=== PATIENT | female | born 1990 | race Hispanic/Latino ===

== ENCOUNTER 2016-07-09 05:57 | Inpatient (IN) | payer MEDICAID ==
[~2016-07-09] VITALS: Ht 149.9 cm; Wt 70.3 kg
[~2016-07-09 05:57] MED LIST: Docusate Sodium PO; Ibuprofen PO
[2016-07-09] MEDS ORDERED: Hemorrhage Kit, Post Partum XX ONE ×2 (06:30→22:55)
[2016-07-09] MEDS ORDERED: Oxytocin 10 Unit/mL Inj IM PRN ×2 (06:30→22:55)
[2016-07-09] MEDS ORDERED: Sodium Chloride LOK Flush 10 mL Syringe IVFLUSH PRN (06:30)
[2016-07-09] MEDS ORDERED: Methylergonovine 0.2 mg/mL Inj IM PRN ×2 (06:30→22:55)
[2016-07-09] MEDS ORDERED: Oxytocin 30 Units/500 mL LR 30 UNITS in IV Premix 1 EACH IV PRN (06:30)
[2016-07-09] MEDS ORDERED: Carboprost 250 mCg/mL Inj IM PRN ×2 (06:30→22:55)
--- NOTE | 2016-07-09 07:09 | PCM.HPOB ---
Subjective Date of Service: Jul 09, 2016 Referring Provider: Admitting Physician: Brayan Viera MD Primary Care Physician: Nopcp Attending Physician: Brayan Viera MD Chief Complaint Induction for twin gestation History of Present History of Present Illness Patient is a 26-year-old female [id number] at 37 weeks of gestational age who is admitted to L&D for induction of twin . He has been complicated by cholestasis and possible IUGR EFW 9% in twin A on 04/05/16 . Twin B appears to have normal growth. Patient's previous has been complicated by oligo, PCN allergy (hives and SOB as infant). Past Medical History Social History: Patient lives in [place] with her and three children, 10, 7 and 2 years old. 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 Hx Tobacco Use: No Hx Alcohol Use: No Hx Substance Use: No Past Family History Living Arrangement: with Family Allergy Coded Allergies: Penicillins (Verified Allergy, Severe, Rash, 12/15/13) Exam Vital Signs Vital signs are stable. Exam FHR at 130 's at baseline, with moderate variability, accelerations present, no decelerations, UC 3-9 minutes. Objective At the time of exam, patient's cervix is 3 cm, 60%, -3. Constitutional: Well-developed, Well-nourished HEENT: Atraumatic, Scleral Anicteric Lungs: Clear to Auscultation, Normal Air Movement Heart: Exam Unremarkable, Regular Rate/Rhythm Abdomen: Gravid Extremities: Pulses Palpable x4 Neurological/Psychiatric: Alert, Oriented X3, Cooperative, No Acute Distress Neuro: Grossly Neurologically Intact Labs/Diagnostics Labs Blood type O+, antibody screen negative, HCT/HGB/MCV 36%/12.3 g/dl/91, Pap test negative on 02/07/16, varicella/rubella immune, RPR non-reactive, HIV screen negative, GBS negative, diabetes screen 102. Ultra Sound UA-abnormal (8-20 weeks) UA-normal (32-26 weeks) Maternal Blood Type: O Hx Rho(D) Immune Globulin: No Group B Strep Results: Negative Rubella: Immune OB Intrapartum Assessment/Plan Assessment Patient is a 26-year-old female [id number] at 37 weeks of gestational age who is admitted to L&D for induction of twin with heart rate tracing reassuring. 1. Admit to L&D 2. Trial of induction for -Cervical ripening balloon inserted at 8 am 3. Continue to monitor closely 4. Patient does not desire epidural for pain relief Naty Baig DO Jul 09, 2016 07:09
[2016-07-09] MEDS ORDERED: HYDR50TA76 PO (07:26)
[2016-07-09] MEDS ORDERED: URSO300C2 PO (07:26)
[2016-07-09] MEDS ORDERED: PNV1TABL9 PO (07:29)
[2016-07-09 09:30] LABS: Mean Corpuscular Volume 91.9 fL (81-100)
[2016-07-09] MEDS ORDERED: hydrOXYzine Pamoate 25 mg Capsule PO PRN (10:30)
[2016-07-09] MEDS: Lactated Ringer's 1,000 ML IV PRN ×2 (16:02→21:44)
[2016-07-09] MEDS ORDERED: Lactated Ringer's 1,000 ML IV SCH (22:51)
[2016-07-09] MEDS ORDERED: LANOlin HPA 7 Gm Ointment TOPICAL PRN (22:55)
[2016-07-09] MEDS ORDERED: Benzocaine (Dermoplast) 20% 60 Gm Spray TOPICAL PRN (22:55)
[2016-07-09] MEDS ORDERED: Witch Hazel-Glycerin Pads TOPICAL PRN (22:55)
[2016-07-09] MEDS: oxyCODONE-Acetamin 5-325 mg Tablet PO PRN (23:09)
[2016-07-10 07:18] LABS: Mean Corpuscular Hemoglobin 31.9 pg (27.0-35.0); Mean Corpuscular Volume 91.2 fL (81-100)
[2016-07-10] MEDS ORDERED: Ascorbic Acid 500 mg Tablet PO SCH (08:00)
[2016-07-10] MEDS: oxyCODONE-Acetamin 5-325 mg Tablet PO PRN (08:08)
--- NOTE | 2016-07-10 10:42 | OP ---
[address] [address] OPERATIVE REPORT PATIENT: JEET HOOD : 1990 MR#: [id number] ADMIT: 07/09/2016 JOB ID: [id number] DATE OF SURGERY: 07/09/2016 SURGEON: Brayan Viera MD. PREOPERATIVE DIAGNOSIS(ES): 1. A 26-year-old, 4, para 3, at 37 weeks with diamniotic dichorionic twin gestation. 2. Cholestasis of . POSTOPERATIVE DIAGNOSIS(ES): 1. A 26-year-old, 4, para 5, status post spontaneous vaginal delivery of twins at term. 2. Cholestasis of . DELIVERY SUMMARY: The patient is a 26-year-old, 4, para 5 now, who came to labor and delivery on July 09, 2016, for induction of labor at 37 weeks due to cholestasis. The patient had diamniotic dichorionic twin gestation. The presentation of twins was confirmed to be cephalic for both twins. Decision was made to proceed with spontaneous vaginal delivery. The patient had a cervical ripening balloon placed at 8 o'clock in the morning on July 09, 2016, when she was examined and found to be 3 cm dilated, 60% effaced, -3 station. The balloon came out at around 5 o'clock p.m. The patient declined an epidural. She was sadie every 4-5 minutes after the balloon came out. heart rate tracing was reactive for both twins. At 9:30 p.m. the patient was brought to the operating room, where a double setup table was arranged. She had artificial rupture of membranes for twin A. The amniotic fluid was clear. Augmentation with Pitocin was started, so the contractions became more adequate. The patient started pushing and at 10:06 p.m. she underwent delivery of the first twin girl, with Apgars 8 at one minute and 9 at five minutes, weight 2432 g. Delayed cord clamping was provided. Following that, the twin girl was transferred to the awaiting solvent recoverer. Cord blood gas was sent. The presentation of the second twin was confirmed to be cephalic. Amniotic membranes were ruptured. The head became gradually engaged and patient started pushing. She underwent spontaneous vaginal delivery of twin B 10 minutes later. At 10:17 p.m., delivered twin girl with Apgars 7 at one minute and 9 at five minutes, weight 2166 g. Delayed cord clamping was provided. After 1 minute, the cord was clamped and cut, and the was handed off to the awaiting solvent recoverer. Cord blood for blood gases was sent. The patient has not had any perineal lacerations. Both placentas were delivered at 10:21 p.m., were found to be intact and were sent to Pathology. Pitocin was started, and uterine massage was provided. The patient still had some excessive bleeding that was controlled with intravascular injection of 0.2 mg of Methergine and 250 mcg of Hemabate. Following that, the bleeding subsided. Total estimated blood loss was 350 mL. It was an uncomplicated spontaneous vaginal delivery of twins.
--- NOTE | 2016-07-10 11:55 | PCM.PNOBPP ---
Subjective Date of Service Jul 10, 2016 Post : Spontaneous Vaginal Delivery Lochia: Normal Pain Management: PO pain meds Gastrointestinal: Good Appetite, No N/V Postop Activity: Ambulate without Assist Group B Strep Results: Negative Rubella: Immune Blood Type: O Labs Laboratory Tests 07/10/16 06:43: White Blood Count 10.2, Red Blood Count 4.11, Hemoglobin 13.1, Hematocrit 37.5, Mean Corpuscular Volume 91.2, Mean Corpuscular Hemoglobin 31.9, Mean Corpuscular Hemoglobin Concent 34.9, Red Cell Distribution Width 13.6, Platelet Count 108 Exam Vital Signs Vital Signs 112/66 62 16 36.6 Vital Signs: VS reviewed, stable Exam Abdomen: Fundus firm Lungs: Clear to Auscultation, Clear to Percussion Heart: Regular Rate/Rhythm, Normal S1 General: Alert, Oriented X3 OB Post Assessment/Plan Assessment Patient is a 26-year-old female PPD#1 Twins vaginal delivery (07/09/16 at 2207, 2217) at 37 weeks of gestational after induction for cholestasis and possible IUGR twin A. patient feels she is not ready for discharge secondary to uterine cramping and feeling dizzy with ambulation. VS labs and PE wnl. Anticipate discharge tomorrow. Patient's previous has been complicated by: 1. Oligo 2. PCN allergy (hives and SOB as infant). Post plan: Discharge home tomorrow Shawn Butler MD Jul 10, 2016 11:46
[2016-07-10] MEDS ORDERED: diphenhydrAMINE 50 mg Capsule PO PRN (12:30)
[2016-07-10] MEDS ORDERED: diphenhydrAMINE 25 mg Capsule PO PRN (12:34)
[2016-07-10] MEDS ORDERED: DOCU-41 PO (16:35)
[2016-07-10] MEDS ORDERED: HYDR30CR76 RC (16:35)
[2016-07-10] MEDS ORDERED: IBUP-1827 PO (16:37)
[2016-07-10] MEDS ORDERED: OXYC1TAB24 PO (16:37)
[2016-07-10] MEDS ORDERED: DIPH25CA6 PO (16:37)
--- NOTE | 2016-07-10 17:06 | PCM.DC.OB ---
Obstetrical Discharge Summary Date of Service Jul 10, 2016 Date of hospital admission Jul 09, 2016 at 05:57 Date of Discharge: Jul 10, 2016 Providers Admitting Physician: Brayan Viera MD Primary Care Physician: Noppankaj Attending Physician: Brayan Viera MD Diagnosis at Time of Discharge Status post Twins vaginal delivery Cholestasis of . Problems: Brief History and Physical: Patient is a 26-year-old female PPD#1 Twins vaginal delivery (07/09/16 at 2207, 2217) at 37 weeks of gestational after induction for cholestasis and possible IUGR twin A. COMPLICATED WITH: 1. Di/di twin 2. Cholestasis 3. possible IUGR, Twin A. 3. Oligo in previou spregnancy. 4. PCN allergy. OUTCOME: Twin A: girl,delivered at 2207, with Apgars 8 at one minute and 9 at five minutes, weight 2432 g. Twin B: girl, delivered 10 minutes later, at 22:17 p.m., with Apgars 7 at one minute and 9 at five minutes, weight 2166 g. DISCHARGE DAY EXAM: day number 1, patient is ambulating, tolerating regular diet without nausea or vomiting and voiding without difficulty. Pain was well controlled. No chest pain, no headache or change in vision. Patient desires discharge and states uterine cramping improved and dizziness resolved. She is ambulating without assistance. Exam Vital Signs Vital Signs 112/66 62 16 36.6 Vital Signs: VS reviewed, stable Exam General: Alert, Oriented X3 Lungs: Clear to Auscultation, Clear to Percussion Heart: Regular Rate/Rhythm, Normal S1, Normal S2 Abdomen: Fundus firm Extremities: No tenderness/swelling, Edema 1+ Lochia: normal. LABS: Laboratory Tests 72 Hours Test 07/09/16 07:00 07/10/16 06:43 White Blood Count 5.1th/mm3 (3.8-10.1) 10.2th/mm3 (3.8-10.1) Red Blood Count 3.94mil/mm3 (3.90-5.20) 4.11mil/mm3 (3.90-5.20) Hemoglobin 12.6g/dL (12.0-15.6) 13.1g/dL (12.0-15.6) Hematocrit 36.2% (35.0-46.0) 37.5% (35.0-46.0) Mean Corpuscular Volume 91.9fL (81-100) 91.2fL (81-100) Mean Corpuscular Hemoglobin 32.0pg (27.0-35.0) 31.9pg (27.0-35.0) Mean Corpuscular Hemoglobin Concent 34.8% (32.0-37.0) 34.9% (32.0-37.0) Red Cell Distribution Width 13.8% (12.3-15.4) 13.6% (12.3-15.4) Platelet Count 110bil/L (150-400) 108bil/L (150-400) labs: Blood type O+, antibody screen negative, HCT/HGB/MCV 36%/12.3 g/dl/91, Pap test negative on 02/07/16, varicella/rubella immune, RPR non-reactive, HIV screen negative, GBS negative, diabetes screen 102. Disposition: home. Discharge Condition: stable. Diet Discharge Diet: No restrictions Activity Discharge Activity-General: Pelvic Rest for 6 weeks (no sex, no tampon and no douching), Balance rest and activity, No lifting >10 pounds for 4-6 weeks Dressing and Incision Care Hygiene: May shower, Wash incision with soap & water (then keep incision dry) Follow Up Plan Follow-up Provider (F9): Brayan Viera MD. Follow-up appointment: in 2 weeks then 6 weeks for post- visit. Call your provider for: fever or chills, shortness of breath, heavy vaginal bleeding, heavy bleeding, epigastric pain, excessive constipation, vaginal discomfort, red painful breasts, other (leg swelling, pain, nausea and vomiting , headache or change in vision.) Hospital Course: Docusate Sodium (Colace) 100 Mg Capsule 100 MG PO BID PRN PRN For Constipation Prescribed by: KEVIN GALLO MD Hydrocortisone (Anusol-Hc) 30 Gm Cream..g. 30 GM RC TID PRN PRN anal pain Prescribed by: KEVIN GALLO MD Ibuprofen (Ibuprofen) 600 Mg Tablet 600 MG PO Q6H PRN PRN For Mild Pain Prescribed by: KEVIN GALLO MD Pnv Cmb#21/Iron/Folic Acid ( Complete Caplet) 1 Each Tablet 1 EACH PO ( Reported) Ursodiol (Ursodiol) 300 Mg Capsule 300 MG PO QID (Reported) diphenhydrAMINE HCl (Benadryl) 25 Mg Capsule 25-50 MG PO Q6H PRN PRN For Itching Prescribed by: KEVIN GALLO MD oxyCODONE-Acetaminophen 5-325 mg (oxyCODONE-Acetaminophen 5-325 mg) 1 Each Tablet 1-2 TAB PO Q4H PRN PRN For Pain Prescribed by: KEVIN GALLO MD Discontinued Medications ([Ibuprofen]) 800 MG TABLET 800 MG PO Q6H PRN PRN For Pain Prescribed by: ZACKERY WINSTON DO ([Docusate Sodium]) 100 MG CAPSULE 100 MG PO BID PRN PRN For Constipation Prescribed by: ZACKERY WINSTON DO Hydroxyzine HCl (HydrOXYzine Hcl) 50 Mg Tablet 50 MG PO QID PRN PRN For Itching (Reported) Kevin Gallo MD Jul 10, 2016 17:00 Kevin Gallo MD Jul 10, 2016 17:00
--- NOTE | 2016-07-10 17:10 | PCM.DIOB ---
Obstetrical Disch Instruction Date of Service: Jul 10, 2016 Dates of Hospitalization Date of Hospital Admission Jul 09, 2016 at 05:57 Providers Admitting Physician: Brayan Viera MD Primary Care Physician: Nopcp Attending Physician: Brayan Viera MD Discharge Diagnosis Discharge Diagnosis status post spontaneous vaginal delivery of twins. Cholestasis of . Problems: Additional Instructions Discharge Instructions Diet Discharge Diet: No restrictions Activity Discharge Activity-General: Pelvic Rest for 6 weeks (no sex, no tampon and no douching), Balance rest and activity, No lifting >10 pounds for 4-6 weeks Dressing and Incision Care Hygiene: May shower, Wash incision with soap & water (then keep incision dry) Follow Up Plan Follow-up Provider (F9): Brayan Viera MD. Follow-up appointment: in 2 weeks then 6 weeks for post- visit. Call your provider for: fever or chills, shortness of breath, heavy vaginal bleeding, heavy bleeding, epigastric pain, excessive constipation, vaginal discomfort, red painful breasts, other (leg swelling, pain, nausea and vomiting , headache or change in vision.) Shawn Butler MD Jul 10, 2016 16:58 Shawn Butler MD Jul 10, 2016 16:58
[2016-07-10] MEDS ORDERED: Methylergonovine 0.2 mg/mL Inj IM ONE (19:40)
--- NOTE | 2016-07-15 11:04 | PATH ---
SURGICAL PATHOLOGY Attending Physician:Brayan Viera MD CASE STATUS: Signed Out PATIENT NAME: JEET HOOD PID: [id number] : 1990 DATE COLLECTED:07/09/2016 00:00 SPECIMEN: Placenta twin, side A CLINICAL HISTORY: TWIN GESTATION 37 WKS CHOLESTASIS OF 1. PLACENTAS (BABY A HAS A CLAMP ON IT) FINAL DIAGNOSIS: 1.TWIN PLACENTA: DIAMNIOTIC, DICHORIONIC MATURE TWIN PLACENTA. NEGATIVE FOR CHORIOAMNIONITIS AND FUNISITIS. ICD10 COD O30.041 GROSS DESCRIPTION: The specimen is received unfixed, labeled with the patient's name and consists of an intact twin placenta and includes placental disc (813 g, 23.5 x 18.5 x 4.2 cm) with 2 umbilical cords umbilical cords, membranes and dividing membrane. A white plastic surgical clamp designates Baby "A". Baby "A" membranes are ruptured 16.5 cm from placental disc and are semi-translucent. Baby "A" umbilical cord (length-29.5 cm, diameter-1.4 x 1.4 cm) is attached 7.1 cm from the edge the placenta and contains 3 vessels. Baby "B" membranes are ruptured 13.5 cm from the placental disc and are semitranslucent. Baby "B". umbilical cord (length-20.5 cm, diameter-1.2 x 0.8 cm) is attached 6.2 cm in edge of the placenta and contains 3 vessels. The surface is smooth and shiny with no evidence of meconium. The maternal surface is dark maroon with normal cotyledon formation. The placental disc is spongy with no hematomas, infarcts, nodules, masses, or lesions identified. Section code: (A) Baby "A" edge of placenta with membranes, umbilical cord; (B-C) Baby "A" placenta, bisected full thickness section; (D) dividing membrane with placental disc; (E) Baby "B" edge of placenta with membranes, umbilical cord; (F-G) Baby "B" placenta, bisected full thickness section. Note: Formalin added 1999 on July 10 2016. 07/13/16 JM MICRO DESCRIPTION: See diagnosis. ICD-9 CODES: CPT CODES: 1: 12067 Electronically Signed Out Norman Ngo MD [facility] [address], [place] [address] Technical component performed at [facility], [facility] [address], [place], [address]
== END 2016-07-10 19:41 | disposition home or self-care (01) | DRG 560 ==
LOC: FBC 05:57 → EDSTATUS 07:15
PROVIDERS: ADMIT Legal Medicine; ATTEND Legal Medicine
PROC: 10E0XZZ Delivery of Products of Conception, External Approach (ICD-10-PCS; principal; 2016-07-09)
PROC: 10907ZC Drainage of Amniotic Fluid, Therapeutic from Products of Conception, Via Natural or Artificial Opening (ICD-10-PCS; 2016-07-09)
PROC: 0U7C7ZZ Dilation of Cervix, Via Natural or Artificial Opening (ICD-10-PCS; 2016-07-09)
DX: O26.613 Liver and biliary tract disorders in pregnancy, third trimester (principal); O72.1 Other immediate postpartum hemorrhage; K83.1 Obstruction of bile duct; Z37.2 Twins, both liveborn; O30.043 Twin pregnancy, dichorionic/diamniotic, third trimester; O36.5931 Maternal care for other known or suspected poor fetal growth, third trimester, fetus 1; Z3A.37 37 weeks gestation of pregnancy